=== PATIENT | female | born 1990 | race Native Hawaiian/Other Pacific Islander ===

== ENCOUNTER 2017-05-18 20:56 | Emergency (ER) | payer OTHER ==
[~2017-05-18] VITALS: Ht 170.2 cm; Wt 81.6 kg
[2017-05-19 00:34] VITALS: BP 134/81; TEMP 98.1
== END 2017-05-19 00:42 | disposition home or self-care (01) ==
LOC: ED 20:56
DX: O26.93 Pregnancy related conditions, unspecified, third trimester (principal); Z3A.36 36 weeks gestation of pregnancy
CPT/HCPCS: 81000; 99282

== ENCOUNTER 2017-06-03 13:57 | Emergency (ER) | payer OTHER ==
[~2017-06-03] VITALS: Ht 170.2 cm; Wt 81.6 kg
[2017-06-03 14:09] VITALS: BP 124/84; TEMP 98.2
== END 2017-06-03 14:59 | disposition home or self-care (01) ==
LOC: ED 13:57
DX: L50.8 Other urticaria (principal); L29.8 Other pruritus
CPT/HCPCS: 99281